=== PATIENT | male | born 1950 | race Asian ===

== ENCOUNTER 2020-12-26 20:23 | Emergency (ER) | payer OTHER, MEDICAID ==
--- NOTE | 2020-12-26 20:28 | NUR ---
Patient to ER bed 4 to gown for evaluation. Side rails up.
[2020-12-26 20:29] VITALS: BP_SYST 198
--- NOTE | 2020-12-26 20:30 | NUR ---
dr love in to assess
[2020-12-26] MEDS ORDERED: IBUPROFEN 600 MG TABLET PO ONE (20:45)
--- NOTE | 2020-12-26 20:50 | NUR ---
OFF TO X-RAY VIA WC. NO DISTRESS
--- NOTE | 2020-12-26 21:16 | NUR ---
CALM, ALERT, RESP UNLABORED, SKIN WARM AND DRY. PAIN TOLERABLE, NO DISTRESS. DENIES CP/SOB
[2020-12-26 21:18] VITALS: BP_SYST 181
--- NOTE | 2020-12-26 21:26 | NUR ---
ON PHONE TALKING, NECK SUPPORT PLACED, NO DISTRESS, DENIES CP/SOB
--- NOTE | 2020-12-26 22:28 | NUR ---
Patient given written and verbal discharge instructions and verbalizes understanding. ER MD discussed with patient the results and treatment provided. Patient in stable condition. ID arm band removed. Patient educated on pain management and to follow up with PMD. Pain Scale 2/10 Opportunity for questions provided and answered. Medication side effect fact sheet provided.
== END 2020-12-26 22:29 | disposition home or self-care (01) ==
LOC: SED 20:23
DX: S16.1XXA Strain of muscle, fascia and tendon at neck level, initial encounter (principal); S39.012A Strain of muscle, fascia and tendon of lower back, initial encounter; V49.59XA Passenger injured in collision with other motor vehicles in traffic accident, initial encounter; Y93.89 Activity, other specified; Y92.413 State road as the place of occurrence of the external cause; Y99.8 Other external cause status
CPT/HCPCS: 72125-TC; 76376; 99284